=== PATIENT | male | born 1940 | race Caucasian/White ===

== ENCOUNTER 2019-09-23 08:15 | Outpatient (RCR) | payer MEDICARE, OTHER ==
[2019-10-08] MEDS ORDERED: ROSU10TA28 PO (15:32)
[2019-10-08] MEDS ORDERED: ASPI-586 PO (15:32)
[2019-10-08] MEDS ORDERED: LISI10TA2 PO (15:32)
[2019-10-08] MEDS ORDERED: MAGN400T39 PO (15:32)
[2019-10-08] MEDS ORDERED: TRAM50TA3 PO (15:32)
[2019-10-08] MEDS ORDERED: CHOL500061 PO (15:32)
[2019-10-08] MEDS ORDERED: SENN-125 PO (15:32)
[2019-10-08] MEDS ORDERED: ACHYD1T PO (15:32)
[2019-10-14] MEDS ORDERED: ACET1TAB43 PO (11:41)
[2019-10-14] MEDS ORDERED: CIPR-226 PO (11:41)
== END 2019-10-13 | disposition home or self-care (01) ==
LOC: ONC 08:15
PROVIDERS: ATTEND Radiology Radiation Oncology
DX: C61 Malignant neoplasm of prostate (principal); I10 Essential (primary) hypertension; M19.91 Primary osteoarthritis, unspecified site; E78.00 Pure hypercholesterolemia, unspecified; E55.9 Vitamin D deficiency, unspecified; H91.90 Unspecified hearing loss, unspecified ear; Z96.651 Presence of right artificial knee joint; Z87.891 Personal history of nicotine dependence; Z79.899 Other long term (current) drug therapy; Z79.82 Long term (current) use of aspirin
CPT/HCPCS: 76873; 99204

== ENCOUNTER 2019-10-08 05:40 | Outpatient (CLI) | payer MEDICARE, OTHER ==
[~2019-10-08] VITALS: Ht 167.7 cm; Wt 94.1 kg
[2019-10-08] MEDS ORDERED: ROSU10TA28 PO (15:32)
[2019-10-08] MEDS ORDERED: ACHYD1T PO (15:32)
[2019-10-08] MEDS ORDERED: LISI10TA2 PO (15:32)
[2019-10-08] MEDS ORDERED: CHOL500061 PO (15:32)
[2019-10-08] MEDS ORDERED: MAGN400T39 PO (15:32)
[2019-10-08] MEDS ORDERED: SENN-125 PO (15:32)
[2019-10-08] MEDS ORDERED: ASPI-586 PO (15:32)
[2019-10-08] MEDS ORDERED: TRAM50TA3 PO (15:32)
== END 2019-10-08 15:37 | disposition home or self-care (01) ==
LOC: PREOP 05:40
PROVIDERS: ATTEND Radiology Radiation Oncology
DX: Z01.818 Encounter for other preprocedural examination (principal)

== ENCOUNTER 2019-10-14 10:05 | Day surgery (SDC) | payer MEDICARE, OTHER ==
[~2019-10-14] VITALS: Ht 167.7 cm; Wt 92.1 kg
[2019-10-14] VITALS (10 sets, daily range): BP systolic 111–152; BP diastolic 71–95
[~2019-10-14 10:05] MED LIST: ACHYD1T PO; ASPI-586 PO; CHOL500061 PO; LISI10TA2 PO; MAGN400T39 PO; ROSU10TA28 PO; SENN-125 PO; TRAM50TA3 PO
[2019-10-14] MEDS ORDERED: IOPAMIDOL 61% 30 ML (ISOVUE 300) VIAL ONE (10:55)
[2019-10-14] MEDS ORDERED: BACITRACIN OINTMENT 28 GM TUBE ONE (10:55)
[2019-10-14] MEDS ORDERED: LEVOFLOXACIN 500 MG/100 ML IV 100 ML ONE (11:19)
[2019-10-14] MEDS ORDERED: LACTATED RINGERS 1,000 ML IV PRN (11:31)
--- NOTE | 2019-10-14 11:36 | Progress Note-Pre Operative ---
Pre-Operative Progress Note H&P Reviewed The H&P was reviewed, patient examined and no changes noted. Date Seen by Provider: Oct 14, 2019 Time Seen by Provider: 11:35 Date H&P Reviewed: Oct 14, 2019 Time H&P Reviewed: 11:35 Pre-Operative Diagnosis: Prostate cancer cT2b, PSA 9l19, [place] 7 (4+3) JARETH ISRAEL MD Oct 14, 2019 11:36
[2019-10-14] MEDS ORDERED: ACET1TAB43 PO (11:41)
[2019-10-14] MEDS ORDERED: CIPR-226 PO (11:41)
--- NOTE | 2019-10-14 11:44 | Discharge Inst-Simple/Standard ---
Discharge Inst-Standard Reconcile Patient Problems Problems Reviewed?: Yes Discharge Medications New, Converted or Re-Newed RX: RX Given to Pt/Family Patient Instructions/Follow Up Plan of Care/Instructions/FU: 1) Follow up with Dr. Robles 11/18 at 2:45 pm. 2) Post implant scan at [facility] cancer center 11/09 at 10:00 am. Activity as Tolerated: Yes Discharge Diet: No Restrictions Other Inst to Patient Please instruct patient on dixon catheter removal. Date to be determined by Dr. Kasper. JARETH ISRAEL MD Oct 14, 2019 11:44
[2019-10-14] MEDS ORDERED: LEVOFLOXACIN 500 MG/100 ML IV 100 ML IV ONE (11:45)
[2019-10-14] MEDS ORDERED: LIDOCAINE PF 2% 5 ML (XYLOCAINE) VIAL ONE (12:12)
[2019-10-14] MEDS ORDERED: proPOfol 200 MG/20 ML (DIPRIVAN) VIAL IV ONE (12:12)
[2019-10-14] MEDS ORDERED: SEVOFLURANE (ULTANE) 15 ML INHAL SOLN ONE (12:12)
[2019-10-14] MEDS ORDERED: ROCURONIUM 10 MG/ML 5 ML SYRINGE IV ONE (12:12)
[2019-10-14] MEDS ORDERED: DEXAMETHASONE 10 MG/ML (DECADRON) 1 ML VIAL ONE (12:12)
[2019-10-14] MEDS ORDERED: fentaNYL INJECTION 100 MCG/2 ML AMP ONE (12:13)
[2019-10-14] MEDS ORDERED: ONDANSETRON 4 MG/2 ML (SDV) Z0FRAN ONE (13:15)
[2019-10-14] MEDS ORDERED: morphine INJ 10 MG/ML 1ML (SYR OR VIAL) IVP ONE (13:45)
[2019-10-14] MEDS ORDERED: ONDANSETRON 4 MG/2 ML (SDV) Z0FRAN IVP PRN (13:45)
--- NOTE | 2019-10-14 13:49 | Progress Note-Post Operative ---
Post-Operative Progess Note Surgeon (s)/Powerhouse Helper (s) Surgeon JARETH ISRAEL MD Powerhouse Helper: Fredy CORNELL MD Pre-Operative Diagnosis Prostate cancer cT2b, PSA 9l19, [place] 7 (4+3) Post-Operative Diagnosis Same as pre-op Procedure & Operative Findings Date of Procedure 10/14/19 Procedure Performed/Findings (1) 100% Cesium 131 permanent prostate seed implant (2) Injection of biodegradable hydrogel prostate-rectal spacer utilizing the SpaceOAR system (3) Cystogram Prostate volume 44 cc Anesthesia Type General Estimated Blood Loss Estimated blood loss (mL): Minimal Specimens/Packing Specimens Removed None Packing: None JARETH ISRAEL MD Oct 14, 2019 13:49
--- NOTE | 2019-10-14 14:50 | Anesthesia-General Post-Op ---
General Patient Condition Mental Status/LOC: Same as Preop Cardiovascular: Satisfactory Nausea/Vomiting: Absent Respiratory: Satisfactory Pain: Controlled Complications: Absent Post Op Complications Complications None Follow Up Care/Instructions Patient Instructions None needed. Anesthesia/Patient Condition Patient Condition Patient is doing well, no complaints, stable vital signs, no apparent adverse anesthesia problems. EWA MCLAUGHLIN DO Oct 14, 2019 14:50
--- NOTE | 2019-10-14 15:31 | Diagnostic Imaging Report ---
EXAMINATION: Fluoroscopy. INDICATION: Brachytherapy. TECHNIQUE: Fluoroscopic assistance was provided for Drs. German for brachytherapy. 17 seconds of fluoroscopy time was utilized. FINDINGS: A single spot film of the low pelvis was obtained. There are numerous radiopaque seed implants overlying the prostate gland. The bladder has been opacified by contrast and there is a Low catheter in place. IMPRESSION: Fluoroscopic assistance was provided for Dr. Morales and Majo. Dictated by: Dictated on workstation # [id number]
--- OUTSIDE RECORDS SUMMARY | 2019-10-16 05:58 | XMS REPORT | Continuity of Care Document ---
Author Organization Unknown Address Unknown Phone Unavailable Allergies Active Description Code Type Severity Reaction Onset Reported/Identified Relationship to Patient Clinical Status Yes No Known Drug Allergies [id number] Drug Allergy Unknown N/A 10/08/2019 Medications There is no data. Problems Date Dx Coded Attending Type Code Diagnosis Diagnosed By 10/08/2019 JARETH ISRAEL MD Ot C61 MALIGNANT NEOPLASM OF PROSTATE 10/08/2019 JARETH ISRAEL MD Ot E55.9 VITAMIN D DEFICIENCY, UNSPECIFIED 10/08/2019 JARETH ISRAEL MD Ot E78.0 0 PURE HYPERCHOLESTEROLEMIA, UNSPECIFIED 10/08/2019 JARETH ISRAEL MD Ot H91.9 0 UNSPECIFIED HEARING LOSS, UNSPECIFIED EA 10/08/2019 JARETH ISRAEL MD Ot I10 ESSENTIAL (PRIMARY) HYPERTENSION 10/08/2019 JARETH ISRAEL MD Ot M19.9 1 PRIMARY OSTEOARTHRITIS, UNSPECIFIED SITE 10/08/2019 JARETH ISRAEL MD Ot Z79.8 2 TIME STUDY ENGINEER (CURRENT) USE OF ASPIRIN 10/08/2019 JARETH ISRAEL MD Ot Z79.8 99 OTHER LONG-TERM (CURRENT) DRUG THERAPY 10/08/2019 JARETH ISRAEL MD Ot 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 10/08/2019 JARETH ISRAEL MD Ot 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 10/08/2019 JARETH ISRAEL MD Ot Z01.8 18 ENCOUNTER FOR OTHER PREPROCEDURAL EXAMIN 10/09/2019 JARETH ISRAEL MD Ot Z01.8 18 ENCOUNTER FOR OTHER PREPROCEDURAL EXAMIN 10/13/2019 JARETH ISRAEL MD Ot C61 MALIGNANT NEOPLASM OF PROSTATE 10/13/2019 JARETH ISRAEL MD Ot E55.9 VITAMIN D DEFICIENCY, UNSPECIFIED 10/13/2019 JARETH ISRAEL MD Ot E78.0 0 PURE HYPERCHOLESTEROLEMIA, UNSPECIFIED 10/13/2019 JARETH ISRAEL MD Ot H91.9 0 UNSPECIFIED HEARING LOSS, UNSPECIFIED EA 10/13/2019 JARETH ISRAEL MD Ot I10 ESSENTIAL (PRIMARY) HYPERTENSION 10/13/2019 JARETH ISRAEL MD Ot M19.9 1 PRIMARY OSTEOARTHRITIS, UNSPECIFIED SITE 10/13/2019 JARETH ISRAEL MD Ot Z79.8 2 LONG-TERM (CURRENT) USE OF ASPIRIN 10/13/2019 JARETH ISRAEL MD Ot Z79.8 99 OTHER TIME STUDY ENGINEER (CURRENT) DRUG THERAPY 10/13/2019 JARETH ISRAEL MD Ot 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 10/13/2019 JARETH ISRAEL MD Ot 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 10/14/2019 Ot C61 MALIGN ANT NEOPLASM OF PROSTATE 10/14/2019 Ot E55.9 TOÑO MIN D DEFICIENCY, UNSPECIFIED 10/14/2019 Ot E78.00 PUR E HYPERCHOLESTEROLEMIA, UNSPECIFIED 10/14/2019 Ot H91.90 UNS PECIFIED HEARING LOSS, UNSPECIFIED EA 10/14/2019 Ot I10 ESSENT IAL (PRIMARY) HYPERTENSION 10/14/2019 Ot M19.91 FLACA IVY OSTEOARTHRITIS, UNSPECIFIED SITE 10/14/2019 Ot Z79.82 JACE G TERM (CURRENT) USE OF ASPIRIN 10/14/2019 Ot Z79.899 OT HER TIME STUDY ENGINEER (CURRENT) DRUG THERAPY 10/14/2019 Ot Z87.891 PE RSONAL HISTORY OF NICOTINE DEPENDENCE 10/14/2019 Ot Z96.651 ND ESENCE OF RIGHT ARTIFICIAL KNEE JOINT 10/14/2019 Ot C61 MALIGN ANT NEOPLASM OF PROSTATE 10/14/2019 Ot E55.9 TOÑO MIN D DEFICIENCY, UNSPECIFIED 10/14/2019 Ot E78.00 PUR E HYPERCHOLESTEROLEMIA, UNSPECIFIED 10/14/2019 Ot H91.90 UNS PECIFIED HEARING LOSS, UNSPECIFIED EA 10/14/2019 Ot I10 ESSENT IAL (PRIMARY) HYPERTENSION 10/14/2019 Ot M19.91 FLACA IVY OSTEOARTHRITIS, UNSPECIFIED SITE 10/14/2019 Ot Z79.82 JACE G TERM (CURRENT) USE OF ASPIRIN 10/14/2019 Ot Z79.899 OT HER TIME STUDY ENGINEER (CURRENT) DRUG THERAPY 10/14/2019 Ot Z87.891 PE RSONAL HISTORY OF NICOTINE DEPENDENCE 10/14/2019 Ot Z96.651 ND ESENCE OF RIGHT ARTIFICIAL KNEE JOINT 10/14/2019 ISRAEL MD, JARETH E Ot C61 MALIGNANT NEOPLASM OF PROSTATE 10/14/2019 JARETH ISRAEL MD Ot E55.9 VITAMIN D DEFICIENCY, UNSPECIFIED 10/14/2019 JARETH ISRAEL MD Ot E78.0 0 PURE HYPERCHOLESTEROLEMIA, UNSPECIFIED 10/14/2019 JARETH ISRAEL MD Ot H91.9 0 UNSPECIFIED HEARING LOSS, UNSPECIFIED EA 10/14/2019 JARETH ISRAEL MD Ot I10 ESSENTIAL (PRIMARY) HYPERTENSION 10/14/2019 JARETH ISRAEL MD Ot M19.9 1 PRIMARY OSTEOARTHRITIS, UNSPECIFIED SITE 10/14/2019 JARETH ISRAEL MD Ot Z79.8 2 LONG-TERM (CURRENT) USE OF ASPIRIN 10/14/2019 JARETH ISRAEL MD Ot Z79.8 99 OTHER TIME STUDY ENGINEER (CURRENT) DRUG THERAPY 10/14/2019 JARETH ISRAEL MD Ot 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 10/14/2019 JARETH ISRAEL MD Ot 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 10/14/2019 JARETH ISRAEL MD Ot C61 MALIGNANT NEOPLASM OF PROSTATE 10/14/2019 JARETH ISRAEL MD Ot E55.9 VITAMIN D DEFICIENCY, UNSPECIFIED 10/14/2019 JARETH ISRAEL MD Ot E78.0 0 PURE HYPERCHOLESTEROLEMIA, UNSPECIFIED 10/14/2019 JARETH ISRAEL MD Ot H91.9 0 UNSPECIFIED HEARING LOSS, UNSPECIFIED EA 10/14/2019 JARETH ISRAEL MD E Ot I10 ESSENTIAL (PRIMARY) HYPERTENSION 10/14/2019 JARETH ISRAEL MD Ot M19.9 1 PRIMARY OSTEOARTHRITIS, UNSPECIFIED SITE 10/14/2019 JARETH ISRAEL MD Ot Z79.8 2 TIME STUDY ENGINEER (CURRENT) USE OF ASPIRIN 10/14/2019 JARETH ISRAEL MD Ot Z79.8 99 OTHER TIME STUDY ENGINEER (CURRENT) DRUG THERAPY 10/14/2019 JARETH ISRAEL MD Ot 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 Results Test Result Range Methicillin resistant Staphylococcus aur eus (MRSA) screening culture - 10/14/19 11:25 Methicillin resistant Staphylococcus aureus (MRSA) scr eening culture NEG NRG Encounters ACCT No. Visit Date/Time Discharge Status Pt. Type Provider Facility Loc./Unit Complaint [id number] 10/14/2019 10:05:00 15:37:00 DIS Outpatient JARETH ISRAEL MD Via [facility] [place] PROSTATE CARCINOMA [id number] 09/23/2019 08:15:00 00:01:00 DIS Outpatient JARETH ISRAEL MD [facility] ONC [id number] 10/08/2019 05:40:00 15:37:00 DIS Outpatient JARETH ISRAEL MD [facility] PREOP BRACHYTHERAPY W/SPACEOA R [id number] 10/14/2019 00:00:00 Document Registration
== END 2019-10-14 15:37 ==
LOC: SDC 10:05
PROVIDERS: ATTEND Radiology Radiation Oncology
DX: C61 Malignant neoplasm of prostate (principal); I10 Essential (primary) hypertension; K21.9 Gastro-esophageal reflux disease without esophagitis; M19.90 Unspecified osteoarthritis, unspecified site; E78.00 Pure hypercholesterolemia, unspecified; E55.9 Vitamin D deficiency, unspecified; Z96.651 Presence of right artificial knee joint; Z87.891 Personal history of nicotine dependence; Z79.82 Long term (current) use of aspirin; Z79.891 Long term (current) use of opiate analgesic; Z79.899 Other long term (current) drug therapy; Z90.89 Acquired absence of other organs; Z80.1 Family history of malignant neoplasm of trachea, bronchus and lung; Z83.3 Family history of diabetes mellitus
CPT/HCPCS: 76965; 77290; 77318; 77332; 77370; 77470; 77778; 87081

== ENCOUNTER 2019-11-10 09:45 | Outpatient (RCR) | payer MEDICARE, OTHER ==
[~2019-11-10 09:45] MED LIST changes: +ACET1TAB43 PO; +CIPR-226 PO
== END 2020-02-08 | disposition home or self-care (01) ==
LOC: ONC 09:45
PROVIDERS: ATTEND Radiology Radiation Oncology
DX: Z51.0 Encounter for antineoplastic radiation therapy (principal); C61 Malignant neoplasm of prostate; I10 Essential (primary) hypertension; E55.9 Vitamin D deficiency, unspecified; H91.90 Unspecified hearing loss, unspecified ear; M19.91 Primary osteoarthritis, unspecified site; E78.00 Pure hypercholesterolemia, unspecified; Z96.651 Presence of right artificial knee joint; Z87.891 Personal history of nicotine dependence; Z79.899 Other long term (current) drug therapy; Z79.82 Long term (current) use of aspirin
CPT/HCPCS: 77290